=== PATIENT | male | born 1960 | race Caucasian/White ===

== ENCOUNTER 2021-08-16 09:30 | Emergency (ER) | payer OTHER ==
--- NOTE | 2021-08-16 10:25 | RAD REPORT ---
EXAM DESCRIPTION: RAD - Chest Single View - 08/16/2021 10:15 am CLINICAL HISTORY: DYSPNEA COMPARISON: No comparisons FINDINGS: Lines: None. Lungs: Mild to moderate multifocal airspace disease. Pleural: No significant pleural effusions or pneumothorax. Cardiac: The heart size is within normal limits. Bones: No acute fractures. Other: IMPRESSION: Mild to moderate multifocal airspace disease concerning for pneumonia, particularly Covi d-19.
[2021-08-16 10:48] LABS: Absolute Lymphocytes (CBC) 0.8 K/uL (0.7-4.9); Basophils % 0.7 % (0-1.3); Lymphocytes % 14.3 % (15.3-44.8); RBC Red Blood Cell Count 5.01 M/uL (4.33-5.43)
[2021-08-16 11:09] LABS: Protime INR 1.25
[2021-08-16 11:11] LABS: ALT/SGPT 22 U/L (12-78); AST/SGOT 37 U/L (15-37); Albumin 3.1 g/dL (3.4-5.0); Alkaline Phosphatase 37 U/L (45-117); BUN Blood Urea Nitrogen 33 mg/dL (7-18); Bicarbonate 23 mmol/L (21-32); Bilirubin Direct 0.3 mg/dL (0-0.2); Bilirubin Total 0.6 mg/dL (0.2-1.0); Ferritin 1636.6 ng/mL (26-388); Glucose Level 188 mg/dL (74-106); Potassium 3.9 mmol/L (3.5-5.1); Protein, Total 7.7 g/dL (6.4-8.2); Sodium Level 134 mmol/L (136-145); Troponin (Emerg Dept Use Only) < 0.02 ng/mL (0.0-0.045)
[2021-08-16] MEDS ORDERED: NA CHLORIDE 0.9% 500 ML ONE (12:13)
--- NOTE | 2021-08-16 12:37 | RAD REPORT ---
EXAM DESCRIPTION: CT - Chest For Pe Angio - 08/16/2021 12:25 pm CLINICAL HISTORY: r/o PE COMPARISON: Chest Single View dated 08/16/2021 FINDINGS: Chest Wall: No suspicious thyroid nodules or pathologic lymphadenopathy. Lungs: Mild bilateral predominantly peripheral ground-glass opacities are noted. Pleura: No significant effusions or pneumothorax. Mediastinum/chris: No pathologic lymphadenopathy. Pulmonary arteries/Aorta: No filling defect identified. No aortic aneurysm. Heart: No significant pericardial effusion. Normal heart size. Upper abdomen: Hepatic steatosis. Bones: No acute abnormality. All CT scans are performed using dose optimization technique as appropriate and may include automated exposure control or mA/KV adjustment according to patient size. IMPRESSION: Negative for pulmonary embolism. Mild bilateral ground-glass opacities in a pattern typi david of Covid-19 pneumonia.
[2021-08-16] MEDS ORDERED: NA CHLORIDE 0.9% 250 ML ONE (13:17)
[2021-08-16] MEDS ORDERED: CASIRIVIMAB/IMDEVIMAB 10 ML VIAL ONE (13:18)
--- NOTE | 2021-08-16 15:12 | EDPHYS ---
Physician Documentation [facility] Name: Robert Khanna Age: 61 yrs Sex: Male : 1960 Arrival Date: 08/16/2021 Time: 09:34 Bed 14 Private MD: ED Physician Jammie Villagomez HPI: 08/16 11:01 This 61 yrs old Male presents to ER via Wheelchair with complaints of Covid+ jr8 sob. 11:01 This is a 61-year-old male patient that presented to the emergency room with complaints jr8 of increased cough and shortness of breath with exertion. Patient was recently diagnosed with Covid on 10 of August by urgent care. Stated that on the fifth symptoms started to progress. Patient stated that he generally has not been hungry as well but denies any nausea, vomiting, diarrhea. Fevers as well. Still tolerating p.o. fluids.. Historical: - Allergies: 09:45 No Known Allergies; vg1 - Home Meds: 09:45 metformin Oral [Active]; Glipizide Oral [Active]; Lisinopril Oral [Active]; Lovastatin vg1 Oral [Active]; Januvia oral [Active]; - PMHx: 09:45 Hypertensive disorder; Diabetes mellitus; Hypercholesterolemia; vg1 - PSHx: 09:45 None; vg1 - Immunization history:: Client reports having NOT received the Covid vaccine. - Social history:: Smoking status: Patient denies any tobacco usage or history of. ROS: 11:01 Eyes: Negative for injury, pain, redness, and discharge, ENT: Negative for injury, jr8 pain, and discharge, Neck: Negative for injury, pain, and swelling, Cardiovascular: Negative for chest pain, palpitations, and edema, Abdomen/GI: Negative for abdominal pain, nausea, vomiting, diarrhea, and constipation, Back: Negative for injury and pain, MS/Extremity: Negative for injury and deformity, Skin: Negative for injury, rash, and discoloration, Neuro: Negative for headache, weakness, numbness, tingling, and seizure. 11:01 Constitutional: Positive for fever. 11:01 Respiratory: Positive for cough, dyspnea on exertion. Exam: 11:01 Eyes: Pupils equal round and reactive to light, extra-ocular motions intact. Lids and jr8 lashes normal. Conjunctiva and sclera are non-icteric and not injected. Cornea within normal limits. Periorbital areas with no swelling, redness, or edema. ENT: Nares patent. No nasal discharge, no septal abnormalities noted. Tympanic membranes are normal and external auditory canals are clear. Oropharynx with no redness, swelling, or masses, exudates, or evidence of obstruction, uvula midline. Mucous membranes moist. Neck: Trachea midline, no thyromegaly or masses palpated, and no cervical lymphadenopathy. Supple, full range of motion without nuchal rigidity, or vertebral point tenderness. No Meningismus. Cardiovascular: Regular rate and rhythm with a normal S1 and S2. No gallops, murmurs, or rubs. Normal PMI, no JVD. No pulse deficits. Respiratory: Lungs have equal breath sounds bilaterally, clear to auscultation and percussion. No rales, rhonchi or wheezes noted. No increased work of breathing, no retractions or nasal flaring. Abdomen/GI: Soft, non-tender, with normal bowel sounds. No distension or tympany. No guarding or rebound. No evidence of tenderness throughout. Back: No spinal tenderness. No costovertebral tenderness. Full range of motion. Skin: Warm, dry with normal turgor. Normal color with no rashes, no lesions, and no evidence of cellulitis. MS/ Extremity: Pulses equal, no cyanosis. Neurovascular intact. Full, normal range of motion. Neuro: Awake and alert, GCS 15, oriented to person, place, time, and situation. Cranial nerves II-XII grossly intact. Motor strength 5/5 in all extremities. Sensory grossly intact. Vital Signs: 09:43 BP 115 / 71; Pulse 94; Resp 20; Temp 99.5(O); Pulse Ox 94% ; Weight 116.57 kg; Height 6 vg1 ft. 0 in. (182.88 cm); Pain 0/10; 10:46 Pulse 105; Pulse Ox 93% on R/A; jt3 10:46 Pulse 89; Pulse Ox 94% on R/A; jt3 13:58 BP 125 / 67; Pulse 88; Resp 17; Pulse Ox 95% on R/A; jt3 14:54 BP 122 / 68; Pulse 82; Resp 17; Pulse Ox 95% on R/A; kd3 15:25 BP 106 / 60; Pulse 83; Resp 17; Temp 98.3; Pulse Ox 95% on R/A; kd3 16:25 BP 100 / 70; Pulse 93; Resp 17; Temp 99.1; Pulse Ox 93% on R/A; kd3 09:43 Body Mass Index 34.86 (116.57 kg, 182.88 cm) vg1 10:46 Walking jt3 10:46 At rest jt3 MDM: 09:58 Patient medically screened. 8 13:12 Data reviewed: vital signs, nurses notes, lab test result(s), EKG, radiologic studies, jr8 CT scan, plain films. Data interpreted: Pulse oximetry: on room air is 94 %. Interpretation: acceptable. Counseling: I had a detailed discussion with the patient and/or guardian regarding: the historical points, exam findings, and any diagnostic results supporting the discharge/admit diagnosis, lab results, radiology results, the need for outpatient follow up, a family practitioner, to return to the emergency department if symptoms worsen or persist or if there are any questions or concerns that arise at home. ED course: Discussed risk versus benefit of CT PE protocol with patient based on renal function and physical exam and D-dimer plus new shortness of breath. Patient was okay with this. Patient was also given fluid bolus to manage potential adverse effects of the contrast mediated study. I also explained to patient that because of his baseline renal function he needs to permanently stop his Metformin and continue his other diabetic medications. He needs to follow-up with his primary care about his renal function and need for discontinuation of his Metformin. Patient has opted to also have Regeneron infusion as he is acceptable candidate for this. As long as patient remains stable patient will be able to go home post infusion. 15:11 ED course: Patient remained stable post Regeneron infusion. Will send home to follow-up jr8 with PCP and to closely monitor. Family is already obtained home pulse oximetry for patient.. 08/16 09:56 Order name: BMP; Complete Time: 11:25 jr8 08/16 09:56 Order name: Blood Culture Adult (2) 8 08/16 09:56 Order name: C-Reactive Protein; Complete Time: 11:25 jr8 08/16 09:56 Order name: CBC with Diff; Complete Time: 11:00 jr8 08/16 09:56 Order name: D-Dimer; Complete Time: 11:08/16 09:56 Order name: Ferritin; Complete Time: :08/16 09:56 Order name: LFT's; Complete Time: :08/16 09:56 Order name: PT-INR; Complete Time: :08/16 09:56 Order name: Procalcitonin; Complete Time: :08/16 09:56 Order name: Ptt, Activated; Complete Time: :08/16 09:56 Order name: Troponin (emerg Dept Use Only); Complete Time: :08/16 09:56 Order name: CXR XRAY; Complete Time: 10:34 08/16 12:08 Order name: CT Chest For PE Angio; Complete Time: 12:45 08/16 09:56 Order name: EKG; Complete Time: 09:57 08/16 09:56 Order name: Cardiac monitoring; Complete Time: 10:08/16 09:56 Order name: Droplet/Contact Precautions; Complete Time: :08/16 09:56 Order name: EKG - Nurse/Tech; Complete Time: :08/16 09:56 Order name: IV Start; Complete Time: :08/16 09:56 Order name: Labs collected and sent; Complete Time: :08/16 09:56 Order name: O2 Per Protocol; Complete Time: 10:08/16 09:56 Order name: O2 Sat Monitoring; Complete Time: :08/16 11:26 Order name: Misc. Order: Ambulatory SPO2; Complete Time: 12:07 Administered Medications: 12:40 Drug: NS 0.9% 500 ml Route: IV; Rate: bolus; Site: right antecubital; jt3 13:59 Drug: Casirivimab-Imdevimab Dose Pack 120 mg/mL-120 mg/mL (EUA) 1 per protocol {Note: jt3 Per protocol 600mg administered IV infusion over one hour. .} Route: IV; Rate: per protocol; Site: right antecubital; 15:34 Follow up: Response: No adverse reaction; IV Status: Completed infusion; IV Intake: kd3 260ml Disposition Summary: 08/16/21 15:11 Discharge Ordered Location: Home jr8 Problem: new jr8 Symptoms: have improved jr8 Condition: Stable jr8 Diagnosis - Pneumonia due to SARS-associated coronavirus jr8 - SARS-associated coronavirus as the cause of diseases classified elsewhere jr8 Followup: jr8 - With: Private Physician - When: 2 - 3 days - Reason: Recheck today's complaints, Continuance of care, Re-evaluation by your physician Discharge Instructions: - Discharge Summary Sheet jr8 - COVID-19 jr8 Forms: - Medication Reconciliation Form jr8 - Thank You Letter jr8 - Antibiotic Education jr8 - Prescription Opioid Use jr8 Prescriptions: - Prednisone 20 mg Oral Tablet - take 1 tablet by ORAL route once daily for 7 days; 7 tablet; Refills: 0, jr8 Product Selection Permitted Addendum: 08/21/2021 05:32 Co-signature as Attending Physician, Jammie Villagomez MD PA/[employer]'s history reviewed, m a2 patient interviewed, and examined. I agree with assessment and care plan and confirm the diagnosis (es) above. Signatures: Dispatcher [employer] EDRussell Hernández PA PA jr8 Jammie Villagomez MD MD ma2 Karen Spencer RN RN vg1 Andres Montemayor RN RN jt3 Rosy Quintero kd3
--- NOTE | 2021-08-16 15:12 | ER ---
Nurse's Notes [facility] Name: Robert Khanna Age: 61 yrs Sex: Male : 1960 Arrival Date: 08/16/2021 Time: 09:34 Bed 14 Private MD: Diagnosis: Pneumonia due to SARS-associated coronavirus;SARS-associated coronavirus as the cause of diseases classified elsewhere Presentation: 08/16 09:43 Chief complaint: Patient states: Pt is Covid Positive as of 08/10/21; was tested at [facility] in [place]. States became shortness of breath on 08/11/21 with a productive cough. Denies chest pain, NVD. States at times feels light headed/dizzy and hasnt ate much. Coronavirus screen: Vaccine status: Patient reports being unvaccinated. Client denies travel out of the [place] in the last 14 days. Ebola Screen: Patient negative for fever greater than or equal to 101.5 degrees Fahrenheit, and additional compatible Ebola Virus Disease symptoms. Initial Sepsis Screen: Does the patient meet any 2 criteria? No. Patient's initial sepsis screen is negative. Does the patient have a suspected source of infection? No. Patient's initial sepsis screen is negative. Risk Assessment: Do you want to hurt yourself or someone else? Patient reports no desire to harm self or others. Onset of symptoms was August 11, 2021. 09:43 Method Of Arrival: Wheelchair vg1 09:43 Acuity: GRACE 3 vg1 Triage Assessment: 09:45 General: Appears in no apparent distress. comfortable, Behavior is calm, cooperative. vg1 Pain: Denies pain. Respiratory: Airway is patent Respiratory effort is even, unlabored. Historical: - Allergies: 09:45 No Known Allergies; vg1 - Home Meds: 09:45 metformin Oral [Active]; Glipizide Oral [Active]; Lisinopril Oral [Active]; Lovastatin vg1 Oral [Active]; Januvia oral [Active]; - PMHx: 09:45 Hypertensive disorder; Diabetes mellitus; Hypercholesterolemia; vg1 - PSHx: 09:45 None; vg1 - Immunization history:: Client reports having NOT received the Covid vaccine. - Social history:: Smoking status: Patient denies any tobacco usage or history of. Screenin:44 Abuse screen: Denies threats or abuse. Denies injuries from another. Nutritional jt3 screening: No deficits noted. Tuberculosis screening: No symptoms or risk factors identified. Fall Risk None identified. Assessment: 10:44 General: Appears in no apparent distress. Behavior is calm, cooperative. Pain: jt3 Complains of pain in chest Quality of pain is described as Chest tightness Is. Neuro: No deficits noted. Cardiovascular: No deficits noted. Respiratory: Reports shortness of breath on exertion Breath sounds are clear bilaterally. 14:10 Reassessment: Patient is tolerating Regen-Cov infusion well. Alert and oriented x4. kd3 Denies any reaction symptoms. VSS. 15:25 Reassessment: Regen-Cov infusion is complete. No reactions at this time. VSS.. kd3 Vital Signs: 09:43 BP 115 / 71; Pulse 94; Resp 20; Temp 99.5(O); Pulse Ox 94% ; Weight 116.57 kg; Height 6 vg1 ft. 0 in. (182.88 cm); Pain 0/10; 10:46 Pulse 105; Pulse Ox 93% on R/A; jt3 10:46 Pulse 89; Pulse Ox 94% on R/A; jt3 13:58 BP 125 / 67; Pulse 88; Resp 17; Pulse Ox 95% on R/A; jt3 14:54 BP 122 / 68; Pulse 82; Resp 17; Pulse Ox 95% on R/A; kd3 15:25 BP 106 / 60; Pulse 83; Resp 17; Temp 98.3; Pulse Ox 95% on R/A; kd3 16:25 BP 100 / 70; Pulse 93; Resp 17; Temp 99.1; Pulse Ox 93% on R/A; kd3 09:43 Body Mass Index 34.86 (116.57 kg, 182.88 cm) vg1 10:46 Walking jt3 10:46 At rest jt3 ED Course: 09:34 Patient arrived in ED. ds1 09:45 Triage completed. vg1 09:45 Arm band placed on. vg1 09:49 Andres Montemayor, JAN is Primary Nurse. jt3 09:55 Russell Sheets PA is PHCP. jr8 09:55 Jammie Villagomez MD is Attending Physician. jr8 10:11 BMP Sent. mh5 10:11 Blood Culture Adult (2) Sent. mh5 10:11 C-Reactive Protein Sent. mh5 10:11 CBC with Diff Sent. mh5 10:11 D-Dimer Sent. mh5 10:11 Ferritin Sent. mh5 10:11 LFT's Sent. mh5 10:11 PT-INR Sent. mh5 10:11 Procalcitonin Sent. mh5 10:11 Ptt, Activated Sent. 5 10:11 Troponin (emerg Dept Use Only) Sent. 5 10:15 CXR XRAY In Process Unspecified. EDMS 10:44 Patient has correct armband on for positive identification. Bed in low position. Side jt3 rails up X 1. Side rails up X2. 10:44 No provider procedures requiring assistance completed. Inserted saline lock: 20 gauge jt3 in right antecubital area, using aseptic technique. Blood collected. 12:24 CT Chest For PE Angio In Process Unspecified. EDMS 16:26 IV discontinued, intact, bleeding controlled, No redness/swelling at site. Pressure kd3 dressing applied. Administered Medications: 12:40 Drug: NS 0.9% 500 ml Route: IV; Rate: bolus; Site: right antecubital; jt3 13:59 Drug: Casirivimab-Imdevimab Dose Pack 120 mg/mL-120 mg/mL (EUA) 1 per protocol {Note: jt3 Per protocol 600mg administered IV infusion over one hour. .} Route: IV; Rate: per protocol; Site: right antecubital; 15:34 Follow up: Response: No adverse reaction; IV Status: Completed infusion; IV Intake: kd3 260ml Intake: 15:34 IV: 260ml; Total: 260ml. kd3 Outcome: 15:11 Discharge ordered by MD. espinoza 16:26 Discharged to home via wheelchair. kd3 16:26 Condition: stable 16:26 Discharge instructions given to patient, Instructed on discharge instructions, medication usage, Demonstrated understanding of medications. 16:45 Patient left the ED. kd3 Signatures: Dispatcher [employer] EDDE Yessy Mckeon Josh, PA PA jr8 Martinez, Maria 5 Karen Spencer, RN RN vg1 Andres Montemayor RN RN jt3 Rosy Quintero kd3
[2021-08-16 17:05] VITALS: BP 100/70; TEMP 99.1; O2SAT 93
--- NOTE | 2021-08-18 20:44 | EKG ---
Test Date: 2021-08-16 Test Time: 10:24:38 Communications Department Head: JANNET MEASUREMENT RESULTS: Intervals: Rate: 90 MS: 174 QRSD: 94 QT: 332 QTc: 406 [place]: P: 17 MS: 174 QRS: -58 T: 53 INTERPRETIVE STATEMENTS: Normal sinus rhythm Left axis deviation Inferior infarct, age undetermined Cannot rule out Anterior infarct, age undetermined Abnormal ECG No previous ECG available for comparison Electronically Signed On 08-18-21 20:35:55 MUTTON PUNCHER by Peter Parmar
== END 2021-08-16 16:45 | disposition home or self-care (01) ==
LOC: ER 09:30
DX: U07.1 COVID-19 (principal); J12.82 Pneumonia due to coronavirus disease 2019; I10 Essential (primary) hypertension; E11.9 Type 2 diabetes mellitus without complications; E78.00 Pure hypercholesterolemia, unspecified
CPT/HCPCS: 96365; 93005; 87040 ×2; 85025; 80048; 36415; 85610; 85379; 80076; 85730; 84484; 82728; 84145; 86140; 71275; 71045; 99284; 96366; Q9967; J7050; J7040; M0243